=== PATIENT | female | born 1985 | race Caucasian/White ===

== ENCOUNTER 2016-11-08 09:12 | Emergency (ER) | payer OTHER ==
[~2016-11-08] VITALS: Wt 99.8 kg
[~2016-11-08 09:12] MED LIST: ABILIFY5 MG PO; ACYCLOVIR400 MG PO; AMOXICILLIN500 M2 PO; AMOXICILLIN500 MG PO; AMOXIL500 MG PO; ATARAX25 MG PO; ATENOLOL25 MG PO; CIPRO250 MG PO; CLARITIN10 MG PO; DAYPRO600 M1 PO; DEPO PROVER150 MG/M1 IM; DEPO-PROVER150 MG/M1 IM; GABAPENTIN100 M2 PO; KEFLEX500 MG PO; MACROBID100 M1 PO; MELOXICAM7.5 MG PO; MOTRIN800 MG PO; NAPROSYN500 MG PO; PREDNICOT20 MG PO; TESSALON PERLE100 M1 PO; TRAZADONE HYDR100 MG PO; ULTRAM50 MG PO; ZITHROMAX Z PA250 MG PO; ZOFRAN4 MG PO
[2016-11-08 09:50] LABS: BASO % 0.6 % (0.0-1.0); EOS # 0.1 10*3/uL (0.0-0.4); EOS % 2.8 % (1.0-4.0); HEMOGLOBIN 12.6 g/dl (12.0-16.0); LYMPH # 1.2 10*3/uL (1.3-4.4); LYMPH % 24.2 % (27.0-41.0); MEAN CELL VOLUME 90.9 fl (81.0-99.0); MEAN CORPUSCULAR HGB 30.1 pg (27.0-31.0); MEAN CORPUSCULAR HGB CONC 33.2 g/dl (33.0-37.0); MEAN PLATELET VOLUME 10.2 fl (9.6-12.3); MONO # 0.4 10*3/uL (0.1-1.0); MONO % 8.8 % (3.0-9.0); NEUT # 3.2 10*3/uL (2.3-7.9); NEUT % 63.2 % (47.0-73.0); PLATELET COUNT AUTOMATED 189 10*3/uL (130-400); RED BLOOD COUNT 4.18 10*6/uL (4.10-5.10); RED CELL DISTRI WIDTH 12.4 % (0-14.5)
[2016-11-08 10:06] LABS: ALBUMIN 3.5 gm/dl (3.1-4.5); ALKALINE PHOSPHATASE 66 U/L (45-117); BUN 11 mg/dl (7-24); CHLORIDE 111 mmol/L (98-107); CREATININE 0.76 mg/dL (0.55-1.02); MAGNESIUM 2.2 mg/dL (1.5-2.1); POTASSIUM 3.8 mmol/L (3.5-5.1); SGOT/AST 14 IU/L (3-35); SGPT/ALT 23 U/L (12-78); SODIUM 141 mmol/L (136-145); TOTAL PROTEIN 6.8 gm/dL (6.4-8.2)
[2016-11-08 10:09] LABS: TROPONIN I < 0.015 ng/ml (<0.045)
[2016-11-08] MEDS ORDERED: MEDROL DOSEPAK4 MG PO (10:40)
[2016-11-08] MEDS ORDERED: NAPROSYN500 MG PO (10:40)
== END 2016-11-08 11:09 | disposition home or self-care (01) ==
LOC: ED 09:12
PROVIDERS: Nurse Practitioner Family
DX: R09.1 Pleurisy (principal); Z90.49 Acquired absence of other specified parts of digestive tract; Z79.899 Other long term (current) drug therapy; I10 Essential (primary) hypertension

== ENCOUNTER 2017-06-01 14:07 | Inpatient (IN) | payer OTHER ==
[~2017-06-01] VITALS: Ht 170.2 cm; Wt 107.7 kg
--- NOTE | ~2017-06-01 | CON ---
[place], [place] REPORT OF CONSULTATION NAME: [facility]I [facility]JALVA [facility] [id number] UNIT #: [id number] ROOM: 402 DOCTOR: KAE BORGES MD BIRTHDATE: [birth year] DOS: 06/02/2017 REASON FOR CONSULTATION: Chest pain. CLINICAL HISTORY: The patient is a 31-year-old patient with history of hypertension, obesity, came to the Emergency Room with chest pain. She was at work and she felt like flushing sensation with some shortness of breath and left side chest pain that radiated to her axilla and this happened at rest. She does describe this pain as a sharp pain and it did not change. No associated nausea, diaphoresis or palpitations. This is more or less constant pain. 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 Her pain came when she was pulling a heavy crate at work, so she came to the Emergency Room and was admitted to the hospital and Cardiology consult for further recommendations. She denies any further chest pain, shortness of breath, no palpitations, no PND or orthopnea. No nausea, vomiting or diarrhea. No headache. No tingling, numbness or weakness. No bladder or bowel symptoms. No musculoskeletal symptoms. REVIEW OF SYSTEMS: Review of the 10 systems negative except as mentioned above. PAST MEDICAL HISTORY: 1. Hypertension. 2. Vitamin D deficiency. 3. Obesity. PAST SURGICAL HISTORY: History of appendectomy, history of . SOCIAL HISTORY: The patient does not smoke or drink, does not use illicit drugs. FAMILY HISTORY: Father has coronary artery disease and mother is healthy and living. ALLERGIES: The patient has no known drug allergies. MEDICATIONS: Reviewed including atenolol and Depo-Provera. PHYSICAL EXAMINATION: VITAL SIGNS: Blood pressure 120/80, pulse 84, respiratory rate of 16, weight 107.7 kilos with a BMI 37.2. GENERAL: Alert, comfortable, in no acute distress. HEENT: Pupils are equal, no jaundice. NECK: Supple, no distended neck veins, no carotid bruit. CHEST: Symmetrical, nontender. LUNGS: Clear to auscultation bilaterally. HEART: Regular rhythm, no S3, no palpable thrills. ABDOMEN: Obese, nontender. Bowel sounds normal. EXTREMITIES: Showed no edema. Distal pulses palpable. SKIN: Warm and dry. No cyanosis, no clubbing. RECTAL: Deferred. [place], [place] REPORT OF CONSULTATION NAME: JUNI GRIJALVA UNIT #: [id number] ROOM: [facility] DOCTOR: JONY JACKMAN,KAE BIRTHDATE: [birth year] GENITOURINARY: Deferred. PSYCHIATRIC: The patient was alert with good mood and affect. REVIEW OF THE DIAGNOSTIC TESTS: EKG showed sinus rhythm, no acute ST-T changes. Her CBC, chemistry and cardiac enzymes are reviewed, unremarkable. IMPRESSION: 1. Chest pain, atypical, myocardial infarction ruled out. 2. Hypertension, stable. 3. Non-morbid obesity. RECOMMENDATIONS: She was scheduled for exercise nuclear stress test today. If this test is unremarkable, she can be discharged home from the cardiac standpoint. Her chest pain appears to be positive musculoskeletal and EKG and cardiac enzymes unremarkable. Risk factor modification for diet, exercise and weight loss discussed. KAE BORGES MD CM:CONSTR:REPORT OF CONSULTATION 1607 06/03/17 2311 interface
--- NOTE | ~2017-06-01 | ST ---
[place], [place] EXERCISE STRESS TEST REPORT NAME: JUNI GRIJALVA [facility] #: [id number] UNIT #: [id number] ROOM: 402 DOCTOR: JONY JACKMAN,KAE BIRTHDATE: [birth year] DOS: 06/02/2017 REFERRING PHYSICIAN: Dr. Nava. REASON FOR TEST: Chest pain. PHYSICAL EXAMINATION NECK: Supple. LUNGS: Clear anteriorly. HEART: Regular rhythm. PROTOCOL: Parminder protocol. Total stress time 7 minutes ____ seconds. Maximum heart rate 162, which is 87% of target heart rate. Peak blood pressure 166/86, adequate response. Total METs 9.1 METs. Conti treadmill score +7. SYMPTOMS: The patient developed left pectoral area chest burning at the peak stress, resolved quickly in the recovery phase and also mild shortness of breath. ELECTROCARDIOGRAM: Resting EKG showed sinus rhythm, sinus tachycardia. Stress EKG showed nondiagnostic upsloping ST depression, no ischemia, no arrhythmias. CONCLUSION: 1. Clinically, the patient developed left chest burning at the peak stress, resolved quickly in recovery phase without any intervention. 2. EKG, nonischemic. POST-STRESS COMPLICATIONS: None. KAE BORGES MD CM:STRESS:EXERCISE STRESS TEST REPORT [id number] KAE BORGES MD
[~2017-06-01 14:07] MED LIST changes: +MEDROL DOSEPAK4 MG PO
[2017-06-01 14:13] VITALS: BP 123/79
[2017-06-01 14:51] LABS: BASO % 0.6 % (0.0-1.0); EOS # 0.3 10*3/uL (0.0-0.4); EOS % 3.6 % (1.0-4.0); HEMATOCRIT 37.4 % (37.0-47.0); HEMOGLOBIN 12.6 g/dl (12.0-16.0); LYMPH # 1.5 10*3/uL (1.3-4.4); LYMPH % 21.4 % (27.0-41.0); MEAN CELL VOLUME 89.9 fl (81.0-99.0); MEAN CORPUSCULAR HGB 30.3 pg (27.0-31.0); MEAN CORPUSCULAR HGB CONC 33.7 g/dl (33.0-37.0); MEAN PLATELET VOLUME 10.3 fl (9.6-12.3); MONO # 0.6 10*3/uL (0.1-1.0); NEUT # 4.5 10*3/uL (2.3-7.9); PLATELET COUNT AUTOMATED 218 10*3/uL (130-400); RED BLOOD COUNT 4.16 10*6/uL (4.10-5.10); RED CELL DISTRI WIDTH 12.3 % (0-14.5); WHITE BLOOD COUNT 6.9 10*3/uL (4.8-10.8)
[2017-06-01 14:59] LABS: ACT PARTIAL THROMBO TIME 21.2 SECONDS (20.8-31.5); INTERNATIONAL NORM RATIO 0.9 (2.0-3.5)
[2017-06-01 15:05] LABS: ALBUMIN 3.6 gm/dl (3.1-4.5); ALKALINE PHOSPHATASE 72 U/L (45-117); BUN 10 mg/dl (7-24); CHLORIDE 111 mmol/L (98-107); CREATININE 0.78 mg/dL (0.55-1.02); LIPASE 144 U/L (73-393); SGOT/AST 16 IU/L (3-35); SGPT/ALT 30 U/L (12-78); SODIUM 140 mmol/L (136-145); TOTAL PROTEIN 6.9 gm/dL (6.4-8.2); TROPONIN I < 0.015 ng/ml (<0.045)
[2017-06-01 16:30] VITALS: BP 111/89
[2017-06-01 20:00] VITALS: BP 128/78
[2017-06-02] VITALS: BP 114/65
[2017-06-02 07:02] LABS: BASO % 0.6 % (0.0-1.0); EOS # 0.3 10*3/uL (0.0-0.4); HEMATOCRIT 38.1 % (37.0-47.0); HEMOGLOBIN 12.6 g/dl (12.0-16.0); LYMPH # 1.5 10*3/uL (1.3-4.4); LYMPH % 23.7 % (27.0-41.0); MEAN CELL VOLUME 91.8 fl (81.0-99.0); MEAN CORPUSCULAR HGB 30.4 pg (27.0-31.0); MEAN CORPUSCULAR HGB CONC 33.1 g/dl (33.0-37.0); MEAN PLATELET VOLUME 10.6 fl (9.6-12.3); MONO # 0.6 10*3/uL (0.1-1.0); MONO % 9.3 % (3.0-9.0); NEUT # 3.9 10*3/uL (2.3-7.9); NEUT % 61.9 % (47.0-73.0); PLATELET COUNT AUTOMATED 215 10*3/uL (130-400); RED BLOOD COUNT 4.15 10*6/uL (4.10-5.10); RED CELL DISTRI WIDTH 12.5 % (0-14.5); WHITE BLOOD COUNT 6.2 10*3/uL (4.8-10.8)
[2017-06-02 07:32] LABS: CHLORIDE 111 mmol/L (98-107); POTASSIUM 3.9 mmol/L (3.5-5.1); SODIUM 143 mmol/L (136-145)
[2017-06-02 07:52] LABS: BUN 13 mg/dl (7-24); CHOLESTEROL 152 mg/dL (<200); CREATININE 0.74 mg/dL (0.55-1.02); HDL CHOLESTEROL 42 mg/dl (40-60); LDL CHOLESTEROL 89 mg/dL (9-159); PHOSPHOROUS 3.2 mg/dL (2.5-4.9); TRIGLYCERIDES 107 mg/dl (<150); VLDL CHOLESTEROL 21 mg/dL (6-40)
[2017-06-02 08:00] VITALS: BP 120/80
== END 2017-06-02 18:01 | disposition home or self-care (01) | DRG 313 ==
LOC: ED 14:07 → 4E 15:53 → EDHOLD 15:53 → 4E 16:22
PROVIDERS: Nurse Practitioner Family; Student in an Organized Health Care Education/Training Program
PROC: 4A02XM4 Measurement of Cardiac Total Activity, External Approach (ICD-10-PCS; principal; 2017-06-02)
DX: R07.89 Other chest pain (principal); E87.8 Other disorders of electrolyte and fluid balance, not elsewhere classified; E83.41 Hypermagnesemia; D72.810 Lymphocytopenia; I10 Essential (primary) hypertension; E66.9 Obesity, unspecified; E55.9 Vitamin D deficiency, unspecified; Z90.49 Acquired absence of other specified parts of digestive tract; Z98.891 History of uterine scar from previous surgery; Z82.49 Family history of ischemic heart disease and other diseases of the circulatory system; Z79.899 Other long term (current) drug therapy; Z68.37 Body mass index [BMI] 37.0-37.9, adult; Z82.3 Family history of stroke

== ENCOUNTER 2017-09-08 11:46 | Emergency (ER) | payer OTHER ==
[~2017-09-08] VITALS: Ht 170.1 cm; Wt 99.8 kg
[2017-09-08] MEDS ORDERED: NAPROSYN500 MG PO (12:25)
== END 2017-09-08 13:25 | disposition home or self-care (01) ==
LOC: ED 11:46
DX: S93.401A Sprain of unspecified ligament of right ankle, initial encounter (principal); I10 Essential (primary) hypertension; E66.01 Morbid (severe) obesity due to excess calories; Z90.49 Acquired absence of other specified parts of digestive tract; W18.39XA Other fall on same level, initial encounter; Y93.89 Activity, other specified; Y92.89 Other specified places as the place of occurrence of the external cause; Y99.8 Other external cause status

== ENCOUNTER 2018-02-23 12:08 | Emergency (ER) | payer OTHER ==
[~2018-02-23] VITALS: Ht 170.1 cm; Wt 95.3 kg
[2018-02-23] MEDS ORDERED: PREDNISONE10 MG PO (12:17)
[2018-02-23] MEDS ORDERED: CLARITIN10 MG PO (12:17)
[2018-02-23] MEDS ORDERED: FLONASE ALLERG9.9 ML NAS (12:17)
== END 2018-02-23 14:42 | disposition home or self-care (01) ==
LOC: ED 12:08
DX: B34.9 Viral infection, unspecified (principal); I10 Essential (primary) hypertension; E66.01 Morbid (severe) obesity due to excess calories; Z79.899 Other long term (current) drug therapy; Z90.49 Acquired absence of other specified parts of digestive tract

== ENCOUNTER → 2019-03-05 | Outpatient (CLI) | payer OTHER ==
[~2019-03-05] MED LIST changes: +FLONASE ALLERG9.9 ML NAS; +PREDNISONE10 MG PO
== END | disposition home or self-care (01) ==
LOC: RAD 12:11
DX: R68.89 Other general symptoms and signs (principal); R06.02 Shortness of breath; R05 Cough

== ENCOUNTER → 2023-03-23 | Outpatient (CLI) | payer OTHER | END | disposition home or self-care (01) | LOC: RAD 11:05 | PROVIDERS: ATTEND Student in an Organized Health Care Education/Training Program | DX: S23.9XXA Sprain of unspecified parts of thorax, initial encounter (principal); M51.34 Other intervertebral disc degeneration, thoracic region; M25.78 Osteophyte, vertebrae; X58.XXXA Exposure to other specified factors, initial encounter; Y93.89 Activity, other specified; Y92.89 Other specified places as the place of occurrence of the external cause; Y99.8 Other external cause status ==